=== PATIENT | female | born 1970 | race Caucasian/White ===

== ENCOUNTER 2024-02-22 10:01 | Emergency (ER) | payer OTHER ==
[~2024-02-22] VITALS: Ht 170.2 cm; Wt 65.8 kg
[2024-02-22 10:19] VITALS: BP 155/80; O2SAT 100
[2024-02-22] MEDS ORDERED: BUTRANS1 EAC4 (10:24)
[2024-02-22] MEDS ORDERED: RINGERS SOLUTION,LACTATED 1,000 ML IV STA (11:08)
[2024-02-22] MEDS ORDERED: MORPHINE SULFATE 4 MG/ML VIAL IV STA (11:08)
[2024-02-22] MEDS ORDERED: FAMOtidine 10 MG/ML (4ML VIAL) IV STA (11:09)
[2024-02-22] MEDS ORDERED: ORPHENADRINE CITRATE 30 MG/ML AMPUL IV STA (11:10)
[2024-02-22] MEDS ORDERED: ONDANSETRON HCL 2 MG/ML VIAL IM STA (11:11)
[2024-02-22 12:06] LABS: HEMATOCRIT 42.5 % (36.0-45.00); HEMOGLOBIN 14.3 g/dL (12.0-15.00); MEAN CELL VOLUME 90.8 fL (80.00-100.00); MEAN CORPUSCULAR HEMOGLOBIN 30.6 pg (27.00-32.0); MEAN CORPUSCULAR HGB CONC 33.7 g/dl (32.0-36.0); PLATELET COUNT 397 K/uL (150-450); RED BLOOD COUNT 4.68 M/uL (4.00-6.00); RED CELL DISTRIBUTION WIDTH 13.7 % (11.5-14.5)
[2024-02-22 12:27] LABS: ALBUMIN 4.5 gm/dL (3.4-5.0); BILIRUBIN TOTAL 1.01 mg/dL (0.3-1.2); BILIRUBIN,CONJUGATED 0.26 mg/dL (0.0-0.2); BILIRUBIN,UNCONJUGATED 0.75 mg/dL (0.0-0.6); CALCIUM 10.1 mg/dL (8.5-10.1); CREATININE SERUM 0.94 mg/dL (0.55-1.02); GFR 61.82; POTASSIUM 3.44 mEq/L (3.5-5.1); TOTAL PROTEIN 8.2 gm/dL (6.4-8.2)
[2024-02-22] MEDS ORDERED: ONDANSETRON HCL 2 MG/ML VIAL ONE (13:46)
[2024-02-22] MEDS ORDERED: ONDANSETRON HCL 2 MG/ML VIAL IV ONE (14:15)
== END 2024-02-22 14:42 | disposition home or self-care (01) ==
LOC: ER 10:03
PROVIDERS: General Practice
DX: F41.9 Anxiety disorder, unspecified (principal); Z88.8 Allergy status to other drugs, medicaments and biological substances; Z85.89 Personal history of malignant neoplasm of other organs and systems